=== PATIENT | male | born 1985 | race African-American/Black ===

== ENCOUNTER 2025-04-28 10:12 | Emergency (ER) | payer OTHER ==
[2025-04-28 10:18] VITALS: TEMP 98.1
[2025-04-28 10:56] LABS: BASO # 0.1 10^3/uL (0.0-0.2); BASO % 1.1 % (0.0-1.0); EOS # 0.2 10^3/uL (0.0-0.5); EOS % 2.8 % (0.0-3.0); LYMPH # 1.5 10^3/uL (1.5-5.0); LYMPH % 27.4 % (24.0-44.0); MONO # 0.5 10^3/uL (0.0-0.8); MONO % 9.3 % (2.0-8.0); NEUTROPHILS # 3.1 10^3/uL (1.5-8.5); NEUTROPHILS % 59.2 % (36.0-66.0); PLATELET COUNT, AUTOMATED 198 10^3/uL (150-450)
[2025-04-28 11:08] LABS: INR 1.01
[2025-04-28 11:22] LABS: ALT/SGPT 51.0 U/L (7.0-40); AST/SGOT 28.0 U/L (<34); CALCIUM LEVEL 8.9 MG/DL (8.5-10.1); CARBON DIOXIDE LEVEL 30.0 MMOL/L (20-31); CHLORIDE LEVEL 103.0 MMOL/L (98-107); CK-MB VALUE MASS 1.1 NG/ML (<3.6); CPK CREATINE PHOSPHOKINASE 274.0 U/L (46-171); CREATININE FOR GFR 1.41 MG/DL (0.70-1.30); GLOMERULAR FILTRATION RATE 65.0 (>60); MB/CK RELATIVE INDEX 0.4 (< OR =4); POTASSIUM SERUM 3.7 MMOL/L (3.5-5.1); SODIUM LEVEL 143.0 MMOL/L (136-145)
[2025-04-28 11:24] LABS: FREE T4 1.25 NG/DL (0.89-1.76)
[2025-04-28 12:34] LABS: CK-MB VALUE MASS 1.2 NG/ML (<3.6)
[2025-04-28 12:35] LABS: CPK CREATINE PHOSPHOKINASE 257.0 U/L (46-171); MB/CK RELATIVE INDEX 0.46 (< OR =4)
[2025-04-28] MEDS ORDERED: TERB250T90 PO (13:25)
[2025-04-28] MEDS ORDERED: HOME MED LIST COMPLETE! XX SCH (13:30)
[2025-04-28 14:00] VITALS: BP 138/79; O2SAT 99
[2025-04-28] MEDS: KETOROLAC 30 MG/ML 1 ML VIAL IV ONE (14:10)
[2025-04-28] MEDS ORDERED: KETO-204 PO (14:24)
== END 2025-04-28 14:35 | disposition home or self-care (01) ==
LOC: M ED 10:12
DX: R07.9 Chest pain, unspecified (principal); I44.0 Atrioventricular block, first degree; E78.5 Hyperlipidemia, unspecified; F17.200 Nicotine dependence, unspecified, uncomplicated; Z91.013 Allergy to seafood; Z79.899 Other long term (current) drug therapy
CPT/HCPCS: 71046; 80048; 80076; 82550; 82553; 83690; 84439; 84443; 84484; 85025; 85610; 93005; 96374; 99284; J1885

== ENCOUNTER 2025-05-02 10:58 | Emergency (ER) | payer OTHER ==
[~2025-05-02] VITALS: Ht 177.8 cm; Wt 100.3 kg
[~2025-05-02 10:58] MED LIST: KETO-204 PO; TERB250T90 PO
[2025-05-02 13:38] VITALS: TEMP 97.6
[2025-05-02 15:13] LABS: KETONE, URINE AUTO RFX NEGATIVE (NEGATIVE); LEUKOCYTE ESTERASE UR AUTO RFX NEGATIVE (NEGATIVE); NITRITE, URINE AUTO RFX NEGATIVE (NEGATIVE); RBC, URINE AUTO RFX 0 /HPF (0-3); SQUAM EPITHELIAL CELL UR AURFX 0 /HPF (0-6); WBC, URINE AUTO RFX 0 /HPF (0-3)
[2025-05-02 16:16] LABS: Trichomonas vaginalis (AMP) NOT DETECTED (NEGATIVE)
[2025-05-02 16:57] VITALS: BP 132/93; O2SAT 98
[2025-05-02 18:25] LABS: GC DNA AMPLIFICATION NEGATIVE (NEGATIVE)
== END 2025-05-02 16:58 | disposition home or self-care (01) ==
LOC: M ED 10:58
DX: I86.1 Scrotal varices (principal); R93.811 Abnormal radiologic findings on diagnostic imaging of right testicle; I10 Essential (primary) hypertension; E78.5 Hyperlipidemia, unspecified; Z79.899 Other long term (current) drug therapy; Z91.013 Allergy to seafood

== ENCOUNTER 2025-06-23 21:06 | Emergency (ER) | payer OTHER ==
[~2025-06-23] VITALS: Ht 177.8 cm; Wt 103.2 kg
[2025-06-23 21:43] LABS: BASO # 0.0 10^3/uL (0.0-0.2); BASO % 0.8 % (0.0-1.0); EOS # 0.1 10^3/uL (0.0-0.5); EOS % 2.7 % (0.0-3.0); LYMPH # 1.7 10^3/uL (1.5-5.0); LYMPH % 35.8 % (24.0-44.0); MONO # 0.5 10^3/uL (0.0-0.8); MONO % 10.8 % (2.0-8.0); NEUTROPHILS # 2.4 10^3/uL (1.5-8.5); NEUTROPHILS % 49.7 % (36.0-66.0); PLATELET COUNT, AUTOMATED 214 10^3/uL (150-450)
[2025-06-23 22:04] LABS: CK-MB VALUE MASS 1.7 NG/ML (<3.6)
[2025-06-23 22:06] LABS: CALCIUM LEVEL 9.2 MG/DL (8.5-10.1); CARBON DIOXIDE LEVEL 30.0 MMOL/L (20-31); CHLORIDE LEVEL 105.0 MMOL/L (98-107); CREATININE FOR GFR 1.34 MG/DL (0.70-1.30); GLOMERULAR FILTRATION RATE 69.1 (>60); POTASSIUM SERUM 4.1 MMOL/L (3.5-5.1); SODIUM LEVEL 143.0 MMOL/L (136-145)
[2025-06-23 22:08] LABS: CPK CREATINE PHOSPHOKINASE 519.0 U/L (46-171); MB/CK RELATIVE INDEX 0.32 (< OR =4)
[2025-06-23 22:56] LABS: CK-MB VALUE MASS 2.1 NG/ML (<3.6)
[2025-06-23 22:57] LABS: CPK CREATINE PHOSPHOKINASE 499.0 U/L (46-171); MB/CK RELATIVE INDEX 0.42 (< OR =4)
[2025-06-24] MEDS: KETOROLAC 30 MG/ML 1 ML VIAL IV ONE (00:02)
[2025-06-24 07:15] VITALS: BP 138/85; TEMP 97.3; O2SAT 94
== END 2025-06-24 08:19 | disposition home or self-care (01) ==
LOC: M ED 21:06
DX: R07.9 Chest pain, unspecified (principal); R20.2 Paresthesia of skin; M25.78 Osteophyte, vertebrae; F17.200 Nicotine dependence, unspecified, uncomplicated; F10.10 Alcohol abuse, uncomplicated; Z91.013 Allergy to seafood; Z79.899 Other long term (current) drug therapy
CPT/HCPCS: 71045; 72125; 80048; 82550; 82553; 84484; 85025; 93005; 93041; 93971; 94760; 96374; 99285; J1885

== ENCOUNTER → 2025-07-09 | Outpatient (CLI) | payer OTHER | LOC: M RAD 06:56 | PROVIDERS: ATTEND Internal Medicine | DX: M17.12 Unilateral primary osteoarthritis, left knee (principal); M25.462 Effusion, left knee; S83.512A Sprain of anterior cruciate ligament of left knee, initial encounter ==